=== PATIENT | male | born 1965 | race Two or more races ===

== ENCOUNTER 2019-02-05 20:25 | Outpatient (CLI) | payer OTHER | END 2019-02-05 20:45 | disposition home or self-care (01) | LOC: LAB 20:25 | DX: R97.20 Elevated prostate specific antigen [PSA] (principal) ==

== ENCOUNTER 2019-04-22 07:33 | Outpatient (CLI) | payer OTHER | END 2019-04-22 07:51 | disposition home or self-care (01) | LOC: SONOGRAMA 07:33 | DX: C61 Malignant neoplasm of prostate (principal); R97.20 Elevated prostate specific antigen [PSA] ==

== ENCOUNTER 2020-05-25 15:24 | Outpatient (CLI) | payer OTHER | END 2020-05-25 15:29 | disposition home or self-care (01) | LOC: LAB 15:24 | PROVIDERS: ATTEND Urology | DX: R97.20 Elevated prostate specific antigen [PSA] (principal) ==

== ENCOUNTER 2020-06-22 07:06 | Outpatient (CLI) | payer OTHER | END 2020-06-22 07:23 | disposition home or self-care (01) | LOC: SONOGRAMA 07:06 | PROVIDERS: ATTEND Urology | DX: D29.1 Benign neoplasm of prostate (principal); R97.20 Elevated prostate specific antigen [PSA] ==

== ENCOUNTER 2022-04-13 06:37 | Outpatient (CLI) | payer OTHER | END 2022-04-13 06:46 | disposition home or self-care (01) | LOC: LAB 06:37 | PROVIDERS: ATTEND Urology | DX: R97.20 Elevated prostate specific antigen [PSA] (principal) ==

== ENCOUNTER 2022-05-04 07:30 | Outpatient (CLI) | payer OTHER | END 2022-05-04 07:39 | disposition home or self-care (01) | LOC: SONOGRAMA 07:30 | PROVIDERS: ATTEND Urology | DX: C61 Malignant neoplasm of prostate (principal); D29.1 Benign neoplasm of prostate; R97.20 Elevated prostate specific antigen [PSA] ==

== ENCOUNTER 2022-05-07 20:23 | Inpatient (IN) | payer OTHER ==
[~2022-05-07] VITALS: Ht 172.7 cm; Wt 78.0 kg
[2022-05-07] MEDS ORDERED: SIMVASTATIN10 MG PO (21:11)
--- NOTE | 2022-05-07 21:12 | NUR ---
SE RECIBE MASCULINO ALERTA Y ORIENTADO X3 QUIEN REFIERE EL VIERNES LE REALIZARON ARIAN BIOPSIA DE PROSTATA Y CHAMBERLAIN ESTADO PRESENTANDO ESCALOFRIOS, FIEBRE Y DOLOR DE SERENA. SE MONITOREAN S/V Y SE UBICA.
--- NOTE | 2022-05-07 21:45 | NUR ---
PTE ALERTA,ESTABLE Y ORIENTADO.SE EDUCA SOBRE EL TRATAMIENTO QUE RECIBIRA EN EL HOSPITAL Y [facility] REFIERE ENTENDER.SE LE MAGGY MUESTRAS DE WES JUN ORDEN MEDICA
--- NOTE | 2022-05-07 23:06 | NUR ---
SE RECIBE A PTE ALERTA Y ORIENTADO X3 EN LASHON CON BARANDAS ELEVADAS POR SEGURIDAD. PTE CON AREA PATENTE DE VENOPUNCION. PTE ESPERANDO CONSULTA DE CONTO PATRICK.
== END 2022-05-10 13:38 | disposition home or self-care (01) | DRG 728 ==
LOC: ER 20:23 → SURG 23:14
PROVIDERS: ADMIT Urology; ATTEND Urology
DX: N41.0 Acute prostatitis (principal); B96.29 Other Escherichia coli [E. coli] as the cause of diseases classified elsewhere; E86.0 Dehydration; D69.6 Thrombocytopenia, unspecified; Z20.822 Contact with and (suspected) exposure to COVID-19